=== PATIENT | female | born 1980 ===

== ENCOUNTER 2021-09-24 10:51 | Outpatient (CLI) | payer OTHER | END 2021-09-24 11:00 | disposition home or self-care (01) | LOC: MAMO-SONO 10:51 | PROVIDERS: ATTEND Obstetrics & Gynecology | DX: N64.4 Mastodynia (principal) ==

== ENCOUNTER 2025-07-05 09:20 | Outpatient (CLI) | payer OTHER | END 2025-07-05 09:23 | disposition home or self-care (01) | LOC: MAMO-SONO 09:20 | PROVIDERS: ATTEND Obstetrics & Gynecology | DX: N64.4 Mastodynia (principal); Z12.31 Encounter for screening mammogram for malignant neoplasm of breast ==